=== PATIENT | female | born 1995 | race American Indian/Alaskan Native ===

== ENCOUNTER 2017-06-26 12:31 | Outpatient (CLI) | payer MEDICAID ==
[2017-06-26] MEDS ORDERED: NORMOSOL-R PH 7.4 1,000 ML IV ONE (13:02)
[2017-06-26 13:35] LABS: Bacteria,Urine 1+ /HPF (Negative); Bilirubin,Urine NEG (Negative); Blood,Urine NEG (Negative); Mucus,Urine 2+ /HPF; Protein,Urine <15 mg/dL mg/dL (Negative); Urobilinogen,Urine < 2.0 mg/dL (<2.0)
[2017-06-26 13:46] LABS: Color,Urine Yellow (Yellow)
[2017-06-26 13:48] VITALS: BP 128/72
[2017-06-26] MEDS ORDERED: NORMOSOL-R PH 7.4 1,000 ML IV SCH (14:00)
[2017-06-26] MEDS ORDERED: TYLENOL PO NR (14:30)
== END 2017-06-26 15:30 | disposition home or self-care (01) ==
LOC: TRG 12:31
PROVIDERS: ATTEND Obstetrics & Gynecology
DX: Z34.93 Encounter for supervision of normal pregnancy, unspecified, third trimester (principal); Z3A.32 32 weeks gestation of pregnancy
CPT/HCPCS: 59025; 81001; 96360; 96361

== ENCOUNTER 2017-08-14 19:20 | Outpatient (CLI) | payer MEDICAID ==
[2017-08-14 19:38] VITALS: BP 121/66
== END 2017-08-14 20:32 | disposition home or self-care (01) ==
LOC: TRG 19:20
PROVIDERS: ATTEND Obstetrics & Gynecology
DX: O62.9 Abnormality of forces of labor, unspecified (principal); Z3A.39 39 weeks gestation of pregnancy
CPT/HCPCS: 59025

== ENCOUNTER 2017-08-16 03:56 | Outpatient (CLI) | payer MEDICAID | END 2017-08-16 05:05 | disposition left against medical advice (07) | LOC: TRG 03:56 | PROVIDERS: ATTEND Obstetrics & Gynecology | DX: O47.1 False labor at or after 37 completed weeks of gestation (principal); Z3A.39 39 weeks gestation of pregnancy ==

== ENCOUNTER 2021-08-05 09:56 | Emergency (ER) | payer MEDICAID ==
[2021-08-05 11:37] LABS: Basophils % (Auto) 0.4 % (0.0-1.8); Eosinophils % (Auto) 0.2 % (0.0-4.3); Hematocrit 34.7 % (30.3-42.9); Lymphocytes # (Auto) 1.7 K/mm3 (1.2-5.4); Lymphocytes % (Auto) 27.4 % (13.4-35.0); Mean Corpuscular HGB Conc 32 % (30-34); Monocytes # (Auto) 0.5 K/mm3 (0.0-0.8); Monocytes % (Auto) 7.4 % (0.0-7.3); Platelet Count 280 K/mm3 (140-440); Red Blood Count 5.12 M/mm3 (3.65-5.03); Red Cell Distribution Width 16.7 % (13.2-15.2)
[2021-08-05] MEDS ORDERED: ONDANSETRON 4 MG/2 ML INJ IV ONE (11:37)
[2021-08-05] MEDS ORDERED: SODIUM CHLORIDE 0.9% 1000 ML IV SOLN IV ONE (11:37)
[2021-08-05 11:38] LABS: Mean Corpuscular Volume 68 fl (79-97)
[2021-08-05 11:47] LABS: Bilirubin,Urine NEG (Negative); Blood,Urine NEG (Negative); Color,Urine Yellow (Yellow); Mucus,Urine 3+ /HPF; Urobilinogen,Urine < 2.0 mg/dL (<2.0)
[2021-08-05 12:03] LABS: Alanine Aminotransferase 6 units/L (7-56); Albumin 4.5 g/dL (3.9-5); Blood Urea Nitrogen 9 mg/dL (7-17); Calcium 8.9 mg/dL (8.4-10.2); Hemolysis Index 3
[2021-08-05 12:04] LABS: BUN/Creatinine Ratio 23
--- NOTE | 2021-08-05 13:51 | Emergency Department Report ---
Vomiting/Diarrhea - [facility] Chief Complaint: Nausea/Vomiting/Diarrhea Stated Complaint: NAUSEA/VOMITING Time Seen by Provider: 08/05/21 11:27 Duration: 2 Days Severity: moderate Nausea/Vomiting Severity: Mild Diarrhea Severity: Mild Pain Severity: None Symptoms: Yes Watery Diarrhea, Yes Able to Tolerate Fluids, No Fever Other History: pt is at 9 weeks no bleeding , ED Review of Systems ROS: Stated complaint: NAUSEA/VOMITING Other details as noted in HPI Constitutional: denies: chills, fever Eyes: denies: eye pain, eye discharge, vision change ENT: denies: ear pain, throat pain Respiratory: denies: cough, shortness of breath, wheezing Cardiovascular: denies: chest pain, palpitations Endocrine: no symptoms reported Gastrointestinal: denies: abdominal pain, nausea, diarrhea Genitourinary: denies: urgency, dysuria, discharge Musculoskeletal: denies: back pain, joint swelling, arthralgia Skin: denies: rash, lesions Neurological: denies: headache, weakness, paresthesias Psychiatric: denies: anxiety, depression Hematological/Lymphatic: denies: easy bleeding, easy bruising ED Past Medical Hx - Past Medical History Hx Hypertension: No Hx Congestive Heart Failure: No Hx Diabetes: No Hx Deep Vein Thrombosis: No Hx Renal Disease: No Hx Sickle Cell Disease: No Hx Seizures: No Hx Asthma: No Hx COPD: No Hx HIV: No - Social History Smoking Status: Never Smoker - Medications Home Medications: Home Medications Medication Instructions Recorded Confirmed Last Taken Type Ferrous Sulfate [Feosol 325 MG tab] 1 tab PO DAILY 08/16/17 08/05/21 08/19/17 08:00 History Vomiting Diarrhea Exam - Exam General: Vital signs noted. No distress. Alert and acting appropriately. HEENT: Yes Moist Mucous Membranes, No Pharyngeal Erythema, No Pharyngeal Exudates, No Rhinorrhea, No Conjuctival Injection, No Frontal Tenderness, No Maxillary Tenderness Neck: No Adenopathy, No Rigidity Lungs: Yes Clear Lung Sounds, Yes Good Air Exchange, No Wheezes, No Stridor, No Cough, No Nasal Flaring, No Retractions, No Use of Accessory Muscles Heart exam: Regular: Yes, Murmur: No, Tachycardia: No Abdomen: Tenderness: No, Peritoneal Signs: No, Distention: No, Hyperactive Bowel sounds: No Skin exam: Rash: No, Edema: No, Normal turgor: Yes Neurologic: Alert and oriented, no deficits. Musculoskeletal: Unremarkable. ED Course Vital Signs 08/05/21 08/05/21 08/05/21 10:03 10:30 10:35 Temperature 98.5 F Pulse Rate 60 Respiratory 16 Rate Blood Pressure Blood Pressure 102/58 [Left] O2 Sat by Pulse 98 99 100 Oximetry 08/05/21 08/05/21 10:45 11:01 Temperature Pulse Rate Respiratory Rate Blood Pressure 108/59 108/59 Blood Pressure [Left] O2 Sat by Pulse 98 100 Oximetry ED Medical Decision Making - Lab Data Result diagrams: 08/05/21 11:10 08/05/21 11:10 - Medical Decision Making work up unremarkable , no gap, no ketosis, fluids given vss , no distress will try OP management Critical care attestation.: If time is entered above; I have spent that time in minutes in the direct care of this critically ill patient, excluding procedure time. ED Disposition Clinical Impression: Nausea and vomiting during , Acute gastroenteritis Disposition: HOME / SELF CARE / HOMELESS Is pt being admited?: No Does the pt Need Aspirin: No Condition: Stable Instructions: Nausea and Vomiting, Adult, Viral Gastroenteritis, Adult, [id number], Morning Sickness, [id number] Referrals: PRIMARY CARE, [Primary Care Provider] - 3-5 Days
[2021-08-05 14:22] VITALS: BP 115/67
== END 2021-08-05 14:00 | disposition home or self-care (01) ==
LOC: ED 09:56
DX: O26.891 Other specified pregnancy related conditions, first trimester (principal); K52.9 Noninfective gastroenteritis and colitis, unspecified; Z3A.09 9 weeks gestation of pregnancy
CPT/HCPCS: 36415; 80053; 81001; 83690; 84484; 84703; 85025; 96361; 96374; 99284; J2405; J7030